=== PATIENT | female | born 1965 | race Caucasian/White ===

== ENCOUNTER 2021-10-04 20:25 | Emergency (ER) | payer BC ==
[~2021-10-04 20:25] MED LIST: BENADRYL 25MG C25 MG PO; EPIPEN 2-P0.3 MG/0.3 INJ; PREDNISONE 10 M10 MG PO
[2021-10-05] MEDS ORDERED: COZAAR100 MG PO (00:07)
== END 2021-10-05 00:15 | disposition home or self-care (01) ==
LOC: ER1 20:25
DX: T78.02XA Anaphylactic reaction due to shellfish (crustaceans), initial encounter (principal); J45.909 Unspecified asthma, uncomplicated; I10 Essential (primary) hypertension; Z91.048 Other nonmedicinal substance allergy status
CPT/HCPCS: 71045; 96372; 96374; 99283; J0171; J1200; J2405; J2930